=== PATIENT | male | born 1975 | race Caucasian/White ===

== ENCOUNTER 2022-11-29 08:13 | Outpatient (CLI) | payer OTHER, SELFPAY ==
[2022-12-03 16:21] LABS: Testosterone Free 97.7 pg/mL (35.0-155.0); Testosterone Total 769 ng/dL (250-1100)
== END 2022-11-29 08:14 | disposition home or self-care (01) ==
LOC: ANHBWCLAB 08:14
PROVIDERS: PCP Family Medicine; Visit Provider Family Medicine
DX: N52.9 Male erectile dysfunction, unspecified (principal); R68.82 Decreased libido
CPT/HCPCS: 36415; 84402; 84403

== ENCOUNTER 2023-05-28 07:52 | Outpatient (CLI) | payer OTHER, SELFPAY ==
[2023-05-28 20:19] LABS: Alanine Aminotransferase 24 U/L (6-50); Albumin Level 4.4 g/dL (3.5-5.1); Alkaline Phosphatase 108 U/L (38-126); Anion Gap 6 mmol/L (8-16); Aspartate Amino Transferase 42 U/L (17-59); Bilirubin,Total 0.6 mg/dL (0.2-1.3); Blood Urea Nitrogen 17 mg/dL (9-20); Calcium 9.3 mg/dL (8.4-10.2); Carbon Dioxide 25 mmol/L (22-30); Chloride 108 mmol/L (98-107); Cholesterol 258 mg/dL (0-200); Estimated Glomerular Filt Rate > 60; Glucose 97 mg/dL (65-110); HDL Direct 38 mg/dL; Potassium 4.4 mmol/L (3.4-5.0); Sodium 139 mmol/L (137-145); Triglycerides 187 mg/dL (<150)
[2023-05-28 20:48] LABS: LDL Cholesterol Direct 158 mg/dL
== END 2023-05-28 07:53 | disposition home or self-care (01) ==
PROVIDERS: PCP Nurse Practitioner Adult Health; Visit Provider Nurse Practitioner Adult Health
DX: I10 Essential (primary) hypertension (principal)
CPT/HCPCS: 36415; 80053; 80061

== ENCOUNTER 2023-11-12 08:02 | Outpatient (CLI) | payer OTHER, SELFPAY ==
--- NOTE | ~2023-11-12 | XR_ITS ---
EXAMINATION:XR_CERV2-3V_CR DATE: 11/12/2023 08:21 INDICATION: Neck pain TECHNIQUE: AP, lateral, lateral swimmers and odontoid views of the cervical spine are provided. COMPARISON: None FINDINGS: There is straightening of the cervical spine which can be positional or due to muscular spa sm. Alignment is normal. The odontoid process is intact. No fracture is identified. The vertebral bod y heights are maintained. There is mild loss of intervertebral disc space height at C5-C6. Small dege nerative osteophytes project from the anterior endplates of multiple vertebral bodies. There is mild facet and uncovertebral joint osteoarthritis at C5-6 and C6-7. Prevertebral soft tissues are normal. IMPRESSION: 1. Mild cervical spondylosis without acute findings. Reviewed, dictated and finalized at location B. GER HELPDESK
--- NOTE | ~2023-11-12 | XR_ITS ---
EXAMINATION: XR thoracic spine 2V DATE: 11/12/2023 08:21 INDICATION: Thoracic back pain TECHNIQUE: AP and lateral views of the thoracic spine are obtained. COMPARISON: None. FINDINGS: No fracture, dislocation, or subluxation. The vertebral body heights and alignment are norm al. There is mild loss of intervertebral disc space height in the lower thoracic spine. The paraverte bral soft tissues are unremarkable. IMPRESSION: 1. Mild thoracic spondylosis without acute findings. Reviewed, dictated and finalized at location B. SCALE MAN
[2023-11-12 19:44] LABS: Basophils Absolute Auto 0.1 K/mm3 (0.0-0.1); Basophils Percent Auto 0.6 % (0.2-1.2); Eosinophils Absolute Auto 0.2 K/mm3 (0-0.3); Eosinophils Percent Auto 1.7 % (0-4.4); Hematocrit 49.6 % (42.0-52.0); Hemoglobin 16.5 g/dL (14.0-18.0); Immature Granulocyte Absolute 0.04 K/mm3 (0.00-0.031); Immature Granulocyte Percent A 0.4 % (0-0.5); Lymphocytes Percent Auto 26.1 % (18.3-44.2); Mean Corpuscular HGB Conc 33.3 g/dl (32-36); Mean Corpuscular Hemoglobin 33.1 pg (26-34); Mean Corpuscular Volume 99.4 fl (80-100); Mean Platelet Volume 11.8 fl (7.4-10.4); Monocytes Absolute Auto 0.8 K/mm3 (0.1-0.6); Monocytes Percent Auto 6.9 % (2.6-8.5); Neutrophils Absolute Auto 7.1 K/mm3 (1.3-6.7); Neutrophils Percent Auto 64.3 % (45.5-73.1); Platelet Count Result 227 k/mm3 (150-375); Red Blood Count 4.99 M/mm3 (4.6-6.20); Red Cell Distribution Width 12.1 % (11.5-14.5); White Blood Count 11.1 K/mm3 (4.5-10.0)
[2023-11-12 20:43] LABS: Alanine Aminotransferase 25 U/L (6-50); Albumin Level 4.4 g/dL (3.5-5.1); Alkaline Phosphatase 116 U/L (38-126); Anion Gap 7 mmol/L (8-16); Aspartate Amino Transferase 29 U/L (17-59); Blood Urea Nitrogen 14 mg/dL (9-20); Calcium 9.5 mg/dL (8.4-10.2); Carbon Dioxide 25 mmol/L (22-30); Chloride 107 mmol/L (98-107); Cholesterol 259 mg/dL (0-200); Estimated Glomerular Filt Rate > 60; Glucose 98 mg/dL (65-110); HDL Direct 46 mg/dL; Potassium 4.4 mmol/L (3.4-5.0); Sodium 139 mmol/L (137-145); Triglycerides 134 mg/dL (<150)
[2023-11-12 20:55] LABS: LDL Cholesterol Direct 160 mg/dL
[2023-11-21 11:41] LABS: Testosterone Free 73.8 pg/mL (35.0-155.0); Testosterone Total 509 ng/dL (250-1100)
== END 2023-11-12 08:03 | disposition home or self-care (01) ==
LOC: ANHBWCIMG 08:03
PROVIDERS: PCP Nurse Practitioner Adult Health; Visit Provider Nurse Practitioner Adult Health
DX: M43.05 Spondylolysis, thoracolumbar region (principal); M43.02 Spondylolysis, cervical region; E78.5 Hyperlipidemia, unspecified; R68.82 Decreased libido
CPT/HCPCS: 36415; 72040; 72070; 80053; 80061; 84402; 84403; 84443; 85025

== ENCOUNTER 2024-04-17 08:02 | Outpatient (CLI) | payer OTHER, SELFPAY ==
--- NOTE | ~2024-04-17 | MR_ITS ---
MRI of the lumbar spine Clinical History: Spinal enthesopathy Technique: Axial T2-weighted images, and sagittal T1-weighted, T2-weighted, and T2 fat-sat images wer e acquired. Findings: There is no fracture or subluxation of the lumbar spine. Vertebral bodies maintain normal h eight and alignment. No bone marrow signal abnormality seen. At L1-L2 and L2-L3, there is no disc bulge or herniation. There is moderate facet arthropathy at thes e levels. No spinal canal stenosis or neural foraminal narrowing. At L3-L4, there is disc bulge, especially the left foraminal region, with moderate facet arthropathy. No central canal stenosis. There is moderate to advanced left neural foraminal narrowing. There is m ild to moderate right neural foraminal narrowing. At L4-L5, there is a small central disc extrusion superimposed on disc bulge with mild to moderate fa cet arthropathy. No sohan central canal stenosis. There is mild to moderate bilateral neural foramina l narrowing. At L5-S1, there is moderate degenerative disc narrowing. There is disc protrusion at the central to l eft paracentral region, with moderate to advanced facet arthropathy. No sohan central canal stenosis. There is moderate left neural foraminal narrowing. Right neural foramen preserved. Possible focal im pingement of the descending left S1-S2 level nerve root by the disc protrusion. Paravertebral soft tissues are unremarkable. Impression: Moderate degenerative spondylosis of the lower lumbar spine, as detailed above. Reviewed, dictated and finalized at location . Impression: Moderate degenerative spondylosis of the lower lumbar spine, as detailed above.
--- NOTE | ~2024-04-17 | MR_ITS ---
MRI of the thoracic spine Clinical History: Spinal stenosis Technique: Axial T2-weighted and gradient images, and sagittal T1-weighted, T2-weighted, and STIR himanshu ges were acquired. Findings: There is no fracture or subluxation of the thoracic spine. Vertebral bodies maintain normal height and alignment. No suspicious bone marrow signal abnormality seen. No significant disc bulge or herniation evident. Mild degenerative disc narrowing present over the lo wer half of the thoracic spine. No spinal canal stenosis or cord compression evident. No epidural mas s or collection seen. No abnormal signal seen in the spinal cord. Paravertebral soft tissues are unremarkable. Impression: Mild degenerative disc narrowing at the lower half of the thoracic spine. Reviewed, dictated and finalized at location . Impression: Mild degenerative disc narrowing at the lower half of the thoracic spine.
== END 2024-04-17 08:03 ==
LOC: MICIMG 08:03
PROVIDERS: PCP Nurse Practitioner Adult Health
DX: M48.04 Spinal stenosis, thoracic region (principal); M51.16 Intervertebral disc disorders with radiculopathy, lumbar region; M46.06 Spinal enthesopathy, lumbar region; M51.34 Other intervertebral disc degeneration, thoracic region; M47.896 Other spondylosis, lumbar region
CPT/HCPCS: 72146; 72148

== ENCOUNTER 2024-10-30 07:38 | Outpatient (CLI) | payer OTHER, SELFPAY ==
[2024-10-30 19:49] LABS: Hematocrit 48.6 % (42.0-52.0); Mean Corpuscular HGB Conc 32.9 g/dl (32-36); Mean Corpuscular Volume 100.2 fl (80-100); Mean Platelet Volume 11.2 fl (7.4-10.4); Platelet Count Result 241 k/mm3 (150-375); Red Blood Count 4.85 M/mm3 (4.6-6.20); Red Cell Distribution Width 12.5 % (11.5-14.5); White Blood Count 10.2 K/mm3 (4.5-10.0)
[2024-10-30 21:06] LABS: Alanine Aminotransferase 23 U/L (6-50); Albumin Level 4.3 g/dL (3.5-5.1); Alkaline Phosphatase 113 U/L (38-126); Anion Gap 3 mmol/L (4-12); Aspartate Amino Transferase 33 U/L (17-59); Bilirubin,Total 0.7 mg/dL (0.2-1.3); Blood Urea Nitrogen 16 mg/dL (9-20); Calcium 9.3 mg/dL (8.4-10.2); Carbon Dioxide 28 mmol/L (22-30); Chloride 107 mmol/L (98-107); Cholesterol 228 mg/dL (0-200); Estimated Glomerular Filt Rate > 60; Glucose 100 mg/dL (65-110); HDL Direct 49 mg/dL; Potassium 4.7 mmol/L (3.4-5.0); Sodium 138 mmol/L (137-145); Triglycerides 138 mg/dL (<150)
[2024-10-30 21:17] LABS: LDL Cholesterol Direct 140 mg/dL
[2024-10-30 21:38] LABS: Prostate Specific Antigen 1.1 ng/mL (< OR = 4.0)
== END 2024-10-30 07:39 | disposition home or self-care (01) ==
LOC: ANHBWCLAB 07:39
PROVIDERS: PCP Nurse Practitioner Adult Health; Visit Provider Nurse Practitioner Adult Health
DX: E78.5 Hyperlipidemia, unspecified (principal); Z12.5 Encounter for screening for malignant neoplasm of prostate
CPT/HCPCS: 36415; 80053; 80061; 84153; 84443; 85027; G0103

== ENCOUNTER 2025-01-13 07:39 | Day surgery (SDC) | payer OTHER, SELFPAY ==
--- NOTE | ~2025-01-13 | XR_ITS ---
XR fluoroscopy no charge Indication: Bilateral L3, L4 and L5 medial branch nerve block TECHNIQUE: Fluoroscopy used during Bilateral L3, L4 and L5 medial branch nerve block performed by Dr Leon [Shawn Watkins MD] on 01/13/2025. When he 2 seconds of fluoroscopy with an 18 fluoroscopic images captured. FINDINGS: Correlate with procedure note. IMPRESSION: Fluoroscopy used during Bilateral L3, L4 and L5 medial branch nerve block. Reviewed, dictated and finalized at location B. M BOX TENDER
--- NOTE | 2025-01-13 08:41 | P.HP_ITS ---
History of Present Illness History of Present Illness Consent: Risks, benefits, and alternatives have been discussed and questions answered. Patient agrees to proceed with procedure. Chief complaint: Spondylosis w/o Myelopathy or Radiculopathy, chron Narrative: Ricki Begum is a 49 year old male with chronic, recalcitrant and disabling bilateral lumbosacral back pain secondary to degenerative spondylosis with failure to respond to aggressive conservative measures including PT, oral and topical analgesics, opioid and nonopioid analgesics, rest, time and activity/behavioral modification over the past 1-2 years who presents for diagnostic/prognostic medial branch blocks of the bilateral L3, L4, L5 medial branches/dorsal ramus(#1) addressing the ipsilateral L4-5, L5-S1 facet joints under fluoroscopic guidance and with contrast control. Review of Systems Review of Systems: Patient denies any new infectious, allergic, cardiopulmonary, neurologic or constitutional symptoms or changes in activity tolerance or exercise capacity including new or progressive SOB/BENTON, peripheral edema, productive cough, dysuria, nausea/vomiting, diarrhea, weight change, fevers/chills/night sweats, new or progressive neurologic deficit, cognitive or mood changes since last seen, except as documented in the HPI. All systems reviewed & are unremarkable except as noted in HPI and below PMFSH Family History Family History Father Diabetes mellitus Hypertension Heart disease Mother Diabetes mellitus Hypertension Cerebrovascular accident Sibling Diabetes mellitus Social History Social History Smoking packs per day: 1 Smoking cigarettes per day: 20.0 Smoking status: Current every day smoker Tobacco type: cigarettes Alcohol intake: never Substance use: never Substance use type: does not use Lack of Transportation: No Lack of Food: Never True Current Housing: I Have Housing Concerned About Future Housing: No Difficulty Paying Gas/Electric Bills: No Difficulty Paying for Meds: No Currently Unemployed: No Education: Decline to Answer Difficulty w/ Childcare or Family Care: No Living arrangements: with family Meds Home Medications and Allergies Home Medications ?Medication ?Instructions ?Recorded ?Confirmed ?Type tadalafil 10 mg tablet (Cialis) 10 mg PO DAILY PRN sexual activity 11/08/22 12/25/24 Rx #20 tabs Allergies Allergy/AdvReac Type Severity Reaction Status Date / Time No Known Allergies Allergy Verified 12/25/24 08:17 Exam Narrative: The patient's physical exam is essentially unchanged from prior examination on 11/24/2024. Specifically, patient demonstrates normal lung capacity, tidal volume and respiratory rate without wheezes, crackles, rales or rubs. Heart rate and rhythm are regular without murmurs, gallops or rubs. No JVD. Pulses 2+ globally without increasing peripheral edema. AAOx3 with no evidence of confusion, intoxication or altered mental state, NC/AT without acute distress or altered consciousness. Speech, cognition, mood, insight and judgment at basel ine and within normal limits. Assessment and Plan Assessment and plan (1) Lumbosacral spondylosis: Code(s): M47.817 - Spondylosis without myelopathy or radiculopathy, lumbosacral region Status: Acute Assessment and Plan: Proceed as planned with diagnostic/prognostic medial branch blocks of the bilateral L3, L4, L5 medial branches/dorsal ramus(#1) addressing the ipsilateral L4-5, L5-S1 facet joints under fluoroscopic guidance and with contrast control. (2) Back pain: Code(s): M54.9 - Dorsalgia, unspecified Status: Acute (3) Chronic pain: Code(s): G89.29 - Other chronic pain Status: Acute
--- OUTSIDE RECORDS SUMMARY | 2025-01-13 08:41 | XMS_ITS | Clinical Summary ---
Author Organization [facility] A Address [address] [place] [address] Care Team Providers Care Wetlands Technician Name Role Phone Unavailable Primary Care Provider Unavailabl e Allergies No known active allergies Medications cholecalciferol (VITAMIN D3) 2,000 unit capsule 2,000 Units. 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 Elevated BP without diagnosis of hypertension Assessment & Plan (03/10/2021 4:44 PM CDT): High bp and watch and do up and start meds Assessment & Plan (11/08/2020 2:41 PM HEATING EQUIPMENT INSTALLER): bp a liaattle higher here and little better at home bringin cherie to cross check Assessment & Plan (07/12/2020 9:05 AM CDT): bp here mildly up aty 113 032 /80-82 with ekg Rate 66 nsr axis 17 without bp efecgts for now wiol not start meds and ask to scooter quarterly or so for cuide monitoring IGT (impaired glucose tolerance) 07/09/2019 Assessment & Plan (03/10/2021 4:43 PM CDT): a1c at 5 2 and go Assessment & Plan (11/08/2020 2:41 PM HEATING EQUIPMENT INSTALLER): Check on return Assessment & Plan (07/12/2020 9:03 AM CDT): a1c at 5.3 and nl No changeds and check yr'ly Assessment & Plan (07/09/2019 3:20 PM CDT): a1c a 5.3 and 5.6 nl. PE (physical exam), annual 06/27/2018 Assessment & Plan (07/12/2020 9:04 AM CDT): healthly male with Allergy issue trial claritin versus and zaditor for eye. Higher overall risk from Tobacco . Colon at age 48 without higher risk . Consider yr'lyl flu shot. And Bring in breath test for use. ekg nl see bp Assessment & Plan (01/08/2019 5:11 PM HEATING EQUIPMENT INSTALLER): Check psa BMI 27.0-27.9,adult 06/27/2018 Assessment & Plan (11/08/2020 2:41 PM HEATING EQUIPMENT INSTALLER): Gained a few lbs. Assessment & Plan (07/09/2019 3:20 PM CDT): Work to keep wt here or lower Assessment & Plan (01/08/2019 5:09 PM HEATING EQUIPMENT INSTALLER): Watch wst Assessment & Plan (06/27/2018 2:01 PM CDT): Being over weight is dealt with by restriction of you daily calories and increasing your calorie needs with increases in your work load/exercises or just increases in daily activity. There are different programs for weight loss and they all are felt to be relatively equally effective and you can make a choice as to what works for you. Microscopic hematuria 06/27/2018 Assessment & Plan (07/12/2020 9:12 AM CDT): Urine clear this time so past likely stone and now not issue push fluids Assessment & Plan (07/09/2019 3:31 PM CDT): Cleared and from stones and passed Assessment & Plan (01/08/2019 5:07 PM HEATING EQUIPMENT INSTALLER): Check urine on reutnr Assessment & Plan (06/27/2018 2:05 PM CDT): Present and hx stones. Can't prove not something elese then stones. Think on seeing uro to eval for stones or someother source. other worry would be cancer Vitamin deficiency 06/27/2018 Assessment & Plan (07/09/2019 3:35 PM CDT): D cont meds and check on reutrn Assessment & Plan (01/08/2019 5:10 PM HEATING EQUIPMENT INSTALLER): Take 2000 a day or 7 pills of 2000 a week Assessment & Plan (06/27/2018 2:10 PM CDT): Not on d as forgets. Take 2000 a day of average and if forgets by weekend get 7 Of the 2000 in a week or take 3 of the 5000 a week Tobacco dependence syndrome 04/11/2014 Overview (02/28/2017): TOBACCO USE DISORDER Assessment & Plan (09/30/2021 12:32 PM CDT): He was advised to quit smoking; the risks of continued tobacco use discussed. 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 Gtreat. No obstructive defect Multiple-type hyperlipidemia 04/11/2014 Overview (02/28/2017): MIXED HYPERLIPIDEMIA Assessment & Plan (03/10/2021 4:43 PM CDT): ldl 102 and and work to stay here andon 5mg and stay there for nowYour cholesterol in the form of ldl (bad) cholesterol,hdl(good) cholesterol and triglycerides are monitored. The triglycerides respond to reduction/controll of your simple carbs/sugars In such items as sugared soda/sweet tea along with fruit juices(containing natural sugar) even if no added sugar is added. LDL cholesterol is reduced with reducing daily intake of fats and emely. saturated fats. The monosaturated fats like olive oil are not harmful except in the calories they contained. Whole milk cheese needs to be remembered along with whole milk products And limited. Assessment & Plan (11/08/2020 2:40 PM HEATING EQUIPMENT INSTALLER): ldl dropped o 5mg atarvasitn and stephen stay athereYour cholesterol in the form of ldl (bad) cholesterol,hdl(good) cholesterol and triglycerides are monitored. The triglycerides respond to reduction/controll of your simple carbs/sugars In such items as sugared soda/sweet tea along with fruit juices(containing natural sugar) even if no added sugar is added. LDL cholesterol is reduced with reducing daily intake of fats and emely. saturated fats. The monosaturated fats like olive oil are not harmful except in the calories they contained. Whole milk cheese needs to be remembered along with whole milk products And limited. Assessment & Plan (07/12/2020 9:02 AM CDT): ldl at 153 and with ascvd risk 8.1 propose starting low dose statin. And start atorvastin 10 and take 1/2 a day and look to get less then 100. Your cholesterol in the form of ldl (bad) cholesterol,hdl(good) cholesterol and triglycerides are monitored. The triglycerides respond to reduction/controll of your simple carbs/sugars In such items as sugared soda/sweet tea along with fruit juices(containing natural sugar) even if no added sugar is added. LDL cholesterol is reduced with reducing daily intake of fats and emely. saturated fats. The monosaturated fats like olive oil are not harmful except in the calories they contained. Whole milk cheese needs to be remembered along with whole milk products And limited. Assessment & Plan (07/09/2019 3:34 PM CDT): ldl at 136 and less then 130. hdl 44 and good Assessment & Plan (01/08/2019 5:07 PM HEATING EQUIPMENT INSTALLER): Lipids check oonrfeturn and look for where done and getr resusltsYour cholesterol in the form of ldl (bad) cholesterol,hdl(good) cholesterol and triglycerides are monitored. The triglycerides respond to reduction/controll of your simple carbs/sugars In such items as sugared soda/sweet tea along with fruit juices(containing natural sugar) even if no added sugar is added. LDL cholesterol is reduced with reducing daily intake of fats and emely. saturated fats. The monosaturated fats like olive oil are not harmful except in the calories they contained. Whole milk cheese needs to be remembered along with whole milk products And limited. Assessment & Plan (06/27/2018 2:02 PM CDT): ldl at high risk 179 and less then 1`30 good and prefer less then 100., diet worked before and will try forYour cholesterol in the form of ldl (bad) cholesterol,hdl(good) cholesterol and triglycerides are monitored. The triglycerides respond to reduction/controll of your simple carbs/sugars In such items as sugared soda/sweet tea along with fruit juices(containing natural sugar) even if no added sugar is added. LDL cholesterol is reduced with reducing daily intake of fats and emely. saturated fats. The monosaturated fats like olive oil are not harmful except in the calories they contained. Whole milk cheese needs to be remembered along with whole milk products And limited. Sciatica 04/11/2014 Overview (03/02/2017): SCIATICA Assessment & Plan (07/09/2019 3:34 PM CDT): Occasionally an issue stretches and Then chiro Assessment & Plan (06/27/2018 2:02 PM CDT): Intermittent and recurrent siatica. , core consider to limit stiffness Resolved Problems Problem Noted Date Diagnosed Date Resolved Date Low back pain 04/11/2014 06/27/2018 Overview (03/03/2017): LUMBAGO Abnormal glucose tolerance test (GTT) 04/11/2014 07/09/2019 Overview (03/03/2017): IMPAIRED ORAL GLUCSE GHADA Assessment & Plan (01/08/2019 5:09 PM HEATING EQUIPMENT INSTALLER): Check a1c on return Assessment & Plan (06/27/2018 2:00 PM CDT): a1c at 5.3 and well les then 5.6 check on return Immunizations Immunization Administration Dates Next Due Influenza, Unspecified 09/30/2021(Deferr ed: Patient Refused),08/26/2020(Deferred: Patient Refused),08/09/2019(Deferred: Patient Refused),07/09/2019(Deferred: Patient Refused),01/08/2019(Deferred: Patient Refused) Tdap 06/27/2018 Surgical History Surgery Date Site/Laterality Comments BACK SURGERY 1998 Back surgery Medical History Medical History Date Comments Hx Other Medical 01-Orthopedist Family History Medical History Relation Name Comments Diabetes Father Diabetes mellit us; Heart disease Father Heart disease; ESKD Requiring Dialysis Mother Diabetes Sister Diabetes mellit us; Relation Name Status Comments Father Mother Sister Social History Tobacco Use Types Packs/Day Years Used Date Smoking Tobacco: Every Day Smokeless Tobacco: Never Tobacco Cessation:Ready to Q uit: Yes; Counseling Given: Yes Comments:Smoking History Packs/day: 1.5 Packs Alcohol Use Standard Drinks/Week Comments Yes 0 (1 standard drink = 0.6 oz pur e alcohol) PHQ-2 Answer Date Recorded PHQ-2 Total Score (If total score is 3 or more points, staff should administer the PHQ-9) 0 09/30/2021 Sex and Gender Information Value Date Recorded Sex Assigned at Not on file Legal Sex Male 4:01 PM HEATING EQUIPMENT INSTALLER Gender Identity Not on file Sexual Orientation Not on file Obstetrics History Last Filed Vital Signs Vital Sign Reading Time Taken Comments Blood Pressure 126/78 09/30/2021 12:50 PM CDT Pulse 95 09/30/2021 12:50 PM CDT Temperature - - Respiratory Rate 18 03/10/2021 4:08 PM CDT Oxygen Saturation 98% 09/30/2021 12:50 PM CDT Inhaled Oxygen Concentration - - Weight 84.4 kg (186 lb) 09/30/2021 12:50 PM CDT Height 170.2 cm (5' 7 ) 09/30/2021 12:50 PM CDT Body Mass Index 29.13 09/30/2021 12:50 PM CDT Plan of Treatment Not on file Insurance [employer] OPEN ACCESS
--- OUTSIDE RECORDS SUMMARY | 2025-01-13 08:41 | XMS_ITS | Referral Summary ---
Author Organization [facility] A Address [address] [place] [address] Care Team Providers Care Employment Specialist/Program Manager Name Role Phone Unavailable Primary Care Provider [...] 11/08/2020 Assessment & Plan (11/08/2020 2:40 PM ELECTRONIC BENCH TECHNICIAN): Elbows and knees off meds for dec [...] meds Assessment & Plan (11/08/2020 2:41 PM ELECTRONIC BENCH TECHNICIAN): bp a liaattle higher here and little [...] go Assessment & Plan (11/08/2020 2:41 PM ELECTRONIC BENCH TECHNICIAN): Check on return Assessment & Plan (07/12/2020 [...] bp Assessment & Plan (01/08/2019 5:11 PM ELECTRONIC BENCH TECHNICIAN): Check psa BMI 27.0-27.9,adult 06/27/2018 Assessment & Plan (11/08/2020 2:41 PM ELECTRONIC BENCH TECHNICIAN): Gained a few lbs. Assessment & Plan (07/09/2019 3:20 PM CDT): Work to keep wt here or lower Assessment & Plan (01/08/2019 5:09 PM ELECTRONIC BENCH TECHNICIAN): Watch wst Assessment & Plan (06/27/2018 2:01 [...] passed Assessment & Plan (01/08/2019 5:07 PM ELECTRONIC BENCH TECHNICIAN): Check urine on reutnr Assessment & Plan (06/27/2018 2:05 PM CDT): Present and hx stones. Can't prove not something elese then stones. Think on seeing uro to eval for stones or someother source. other worry would be cancer Vitamin deficiency 06/27/2018 Assessment & Plan (07/09/2019 3:35 PM CDT): D cont meds and check on reutrn Assessment & Plan (01/08/2019 5:10 PM ELECTRONIC BENCH TECHNICIAN): Take 2000 a day or 7 pills [...] Assessment & Plan (07/09/2019 3:35 PM CDT): continuous churn buttermaker talk about quit Assessment & Plan (06/27/2018 2:39 PM CDT): Recognize need to quit.fvc 111 and [id number]% of nl. Gtreat. No obstructive defect Multiple-type [...] limited. Assessment & Plan (11/08/2020 2:40 PM ELECTRONIC BENCH TECHNICIAN): ldl dropped o 5mg atarvasitn and stephen [...] good Assessment & Plan (01/08/2019 5:07 PM ELECTRONIC BENCH TECHNICIAN): Lipids check oonrfeturn and look for where [...] GHADA Assessment & Plan (01/08/2019 5:09 PM ELECTRONIC BENCH TECHNICIAN): Check a1c on return Assessment & Plan (06/27/2018 2:00 PM CDT): a1c at 5.3 and well les then 5.6 check on return Immunizations Immunization Administration Dates Next Due Influenza, Unspecified 09/30/2021(Deferr ed: Patient Refused),08/26/2020(Deferred: Patient Refused),08/09/2019(Deferred: Patient Refused),07/09/2019(Deferred: Patient Refused),01/08/2019(Deferred: Patient Refused) Tdap 06/27/2018 Social History Tobacco Use Types Packs/Day Years [...] on file Legal Sex Male 4:01 PM ELECTRONIC BENCH TECHNICIAN Gender Identity Not on file Sexual Orientation Not on file Last Filed Vital Signs Vital Sign Reading [...] Plan of Treatment Not on file Insurance [employer] OPEN ACCESS
--- OUTSIDE RECORDS SUMMARY | 2025-01-13 08:41 | XMS_ITS | Continuity of Care Document ---
Author Organization [facility] Address [address] [place] [address] Phone Care Team Providers Care Damaged Freight Inspector Name Role Phone Dalton Nichols MD Unavailable Unavailable Procedures Procedure Date Eye Exam, New Patient Advance Directives Directive Yes / No Effective Date File Name No Information Encounters Encounter Description Practice Location Reason(s) For Visit Diagnoses Date Provider Providers Copied on Encounter [facility], [address], [place], [place], [id number], [place] tel:[phone] [place] Professional No Information 0 Simone Hoffman. [address] [facility] [address], [place], [place], [id number], [place]. tel:[phone] Family History Family Member Type Diagnosis Age At Onset No Information Payers Payer name Insurance type Covered constitution party ID Authoriza tion(s) No Information Social History Type Description Quantity Date Captured Comments Sex Male Smoking Status No Information Chief Complaint And Reason For Visit No Information Reason For Referral Reason For Referral No Information History Of Present Illness Encounter Date Complaint History Of Prese nt Illness No Information Functional Status Date Functional Assessmen t No Information Instructions Date Instruction Additional Infor mation No Information Assessments Type Assessment Date No Information Patient Care Teams Name Effective Dates (start - stop) Status Members No Information
--- NOTE | 2025-01-13 08:43 | WPDHPUPDATE1 ---
History and Physical Update Update Date/Time: 01/13/25 08:43 History and Physical has been reviewed, including an updated exam of the patient. There are NO changes in the patient's condition. Risks, benefits, and alternatives have been discussed and questions answered. Patient agrees to proceed with procedure.
--- NOTE | 2025-01-13 08:43 | W.PM.PROC2 ---
Procedure Note - Detailed Date of Procedure 01/13/25 Pre-op Diagnosis Spondylosis w/o Myelopathy or Radiculopathy, chronic low back pain Post-op Diagnosis Same Procedure Performed Diagnostic bilateral Lumbar Medial Branch/Dorsal Ramus Blocks at L3, L4, L5 Treating the bilateral L4-5, L5-S1 Facet Joints Under Fluoroscopic Guidance and with Contrast Control. (4 levels blocked). Surgeon Shawn Watkins MD Specialized Language Instructor None. Anesthesia Local Description of Procedure INFORMED CONSENT: Risks, benefits and alternatives to the procedure were discussed in detail with the patient who expressed explicit understanding and consent to proceed. Patient was informed verbally and in written form regarding the risks associated with the procedure including the low risk of serious infection, bleeding/bruising, allergic reaction, nerve or organ injury, paralysis, procedural site pain or discomfort, worsening pain and/or mobility, failure to treat and/or disfigurement. The patient expressed explicit understanding and consent to proceed. All materials required for the procedure were available prior to procedure start. Site and side were marked prior to procedure and confirmed in the presence of the patient. PROCEDURE IN DETAIL: The patient was brought to the procedural suite and placed in the prone position. Patient was made comfortable with use of pillows under the head/chest, hips and ankles. Skin overlying the injection site on the affected side(s) was prepared broadly with ChloraPrep applicator and draped in a sterile manner. Aseptic technique was used throughout. The endplates of the vertebral bodies at the site(s) of interest were aligned in the AP view. Ipsilateral oblique angulation was utilized to optimize visualization of the intersection between the superior articulating process and transverse process at each target site. Local anesthesia was established by infiltration with approximately 5 mL of 1% lidocaine via a 1-1/2 inch 27-gauge needle. A 25-gauge 5.0 inch Quincke spinal needle was advanced until the needle tip contacted periosteum at the target site, right L3. Lateral view was utilized to confirm the appropriate placement of the needle tip just anterior to the facet line and superior to the pedicle. In the Lateral view, 0.25 mL of Omnipaque 300 contrast medium was injected after negative aspiration for CSF, blood or other bodily fluid, showing appropriate extra-articular spread of contrast without evidence of intravascular, foraminal or intrathecal placement. A 0.5 mL solution of 0.5% PF bupivacaine was injected after negative repeat aspiration. Appropriate spread of the injectate was confirmed with washout of previously injected contrast. No parasthesias were elicited. Needle was removed completely intact without difficulty. The same exact procedure was repeated for all remaining levels on the ipsilateral side, right L4, L5 medial branches/dorsal ramus, modified as necessary to accommodate for the new target location with identical findings and results and no evidence of complication. The same exact procedure was repeated for all remaining levels on the contralateral side, left L3, L4, L5 medial branches/dorsal ramus, modified as necessary to accommodate for the new target location with identical findings and results and no evidence of complication. Images were saved and documented in the patient chart. Patient's skin was cleaned and sterile bandage applied. The patient tolerated the procedure well. The patient was transported to the recovery area in stable condition where they were observed for an appropriate amount of time prior to discharge, without evidence of complication. Patient was instructed on the appropriate completion of a pain diary over the next 12-24 hours. The patient was instructed to avoid excessive activity for the next 48 hours, including climbing and frequent use of stairs. Showers only for 48 hours. They were instructed not to drive or operate heavy machinery for 24 hours. They are to monitor for severe headaches, fevers, chills, night sweats, erythema/swelling at the site or any other signs of infection, bleeding/bruising, bowel or bladder changes as well as new pain, weakness or numbness in the upper or lower extremity. Should they notice these changes, they are instructed to call our office immediately or report directly to the nearest Emergency Department if no answer or if after posted office hours. COMPLICATIONS: None COMMENTS: None CONTRAST WASTED: 28.5mL Omnipaque 300. Complications No immediate complications Condition Stable Disposition Same day [facility] Billing Surgery - Charge Forward: Surgery Billing
[2025-01-13 08:54] VITALS: BP 146/82; PULSE 80; RESP 16; TEMP 36.7; O2SAT 98
[2025-01-13 09:14] VITALS: BP 177/89; PULSE 95; RESP 12; O2SAT 98
[2025-01-13 09:25] VITALS: BP 180/83; PULSE 88; RESP 13; O2SAT 96
[2025-01-13] MEDS: BUPivacaine HCL 0.5% 10 ML AMP 5 ML INFILTRATE (09:25)
[2025-01-13] MEDS: LIDOCAINE 1% PF INJ 5 ML VIAL INFILTRATE (09:26)
[2025-01-13 09:30] VITALS: BP 143/84; PULSE 69; RESP 16; O2SAT 100
== END 2025-01-13 09:45 | disposition home or self-care (01) ==
PROVIDERS: PCP Nurse Practitioner Adult Health; Visit Provider Anesthesiology Pain Medicine
PROC: (CPT 64635; principal; 2025-01-13 09:30)
DX: M47.817 Spondylosis without myelopathy or radiculopathy, lumbosacral region (principal); G89.29 Other chronic pain
CPT/HCPCS: 64635; 64636 ×6; 99199

== ENCOUNTER 2025-04-21 06:27 | Day surgery (SDC) | payer OTHER, SELFPAY ==
--- NOTE | ~2025-04-21 | XR_ITS ---
XR fluoroscopy no charge Indication: Bilateral intra-articular sacroiliac joint injection TECHNIQUE: Fluoroscopy used during Bilateral intra-articular sacroiliac joint injection performed by [Shawn Watkins MD] on 04/21/2025. 55 seconds of fluoroscopy time with 10 fluoroscopic images c aptured. FINDINGS: Correlate with procedure note. IMPRESSION: Fluoroscopy used during Bilateral intra-articular sacroiliac joint injection. Reviewed, dictated and finalized at location A.
--- OUTSIDE RECORDS SUMMARY | 2025-04-21 07:26 | XMS_ITS | Continuity of Care Document ---
Author Organization [facility] Address [address] [place] [address] Phone Care Team Providers Care Industrial Workers Name Role Phone Dalton Nichols MD Unavailable Unavailable Procedures Procedure Date Eye Exam, New Patient Advance Directives Directive Yes / No Effective Date File Name No Information Encounters Encounter Description Practice Location Reason(s) For Visit Diagnoses Date Provider Providers Copied on Encounter [facility], [address], [place], [place], [id number], [place] tel:[phone] SEC Juan [place] Professional No Information 0 Simone Hoffman. [address] [facility] [address], [place], [place], [address], [place]. tel:[phone] Family History Family Member Type Diagnosis Age At Onset No Information Payers Payer name Insurance type Covered green party ID Authoriza tion(s) No Information Social [...]
--- OUTSIDE RECORDS SUMMARY | 2025-04-21 07:26 | XMS_ITS | Clinical Summary ---
Author Organization [facility] Address [address] [place] [address] Care Team Providers Care Flower Planter Name Role Phone Unavailable Primary Care Provider [...] 11/08/2020 Assessment & Plan (11/08/2020 2:40 PM BARREL ASSEMBLY INSPECTOR): Elbows and knees off meds for dec [...] meds Assessment & Plan (11/08/2020 2:41 PM BARREL ASSEMBLY INSPECTOR): bp a liaattle higher here and little [...] go Assessment & Plan (11/08/2020 2:41 PM BARREL ASSEMBLY INSPECTOR): Check on return Assessment & Plan (07/12/2020 [...] bp Assessment & Plan (01/08/2019 5:11 PM BARREL ASSEMBLY INSPECTOR): Check psa BMI 27.0-27.9,adult 06/27/2018 Assessment & Plan (11/08/2020 2:41 PM BARREL ASSEMBLY INSPECTOR): Gained a few lbs. Assessment & Plan (07/09/2019 3:20 PM CDT): Work to keep wt here or lower Assessment & Plan (01/08/2019 5:09 PM BARREL ASSEMBLY INSPECTOR): Watch wst Assessment & Plan (06/27/2018 2:01 [...] passed Assessment & Plan (01/08/2019 5:07 PM BARREL ASSEMBLY INSPECTOR): Check urine on reutnr Assessment & Plan (06/27/2018 2:05 PM CDT): Present and hx stones. Can't prove not something elese then stones. Think on seeing uro to eval for stones or someother source. other worry would be cancer Vitamin deficiency 06/27/2018 Assessment & Plan (07/09/2019 3:35 PM CDT): D cont meds and check on reutrn Assessment & Plan (01/08/2019 5:10 PM BARREL ASSEMBLY INSPECTOR): Take 2000 a day or 7 pills [...] Assessment & Plan (07/09/2019 3:35 PM CDT): long term care phlebotomist talk about quit Assessment & Plan (06/27/2018 2:39 PM CDT): Recognize need to quit.fvc 111 and [id number]% of nl. Gtreat. No obstructive defect Multiple-type [...] limited. Assessment & Plan (11/08/2020 2:40 PM BARREL ASSEMBLY INSPECTOR): ldl dropped o 5mg atarvasitn and stephen [...] good Assessment & Plan (01/08/2019 5:07 PM BARREL ASSEMBLY INSPECTOR): Lipids check oonrfeturn and look for where [...] GHADA Assessment & Plan (01/08/2019 5:09 PM BARREL ASSEMBLY INSPECTOR): Check a1c on return Assessment & Plan [...] on file Legal Sex Male 4:01 PM BARREL ASSEMBLY INSPECTOR Gender Identity Not on file Sexual Orientation [...] Plan of Treatment Not on file Insurance [employer] OPEN ACCESS
--- OUTSIDE RECORDS SUMMARY | 2025-04-21 07:26 | XMS_ITS | Referral Summary ---
Author Organization [facility] Address [address] [place] [address] Care Team Providers Care Dairy Chemist Name Role Phone Unavailable Primary Care Provider [...] 11/08/2020 Assessment & Plan (11/08/2020 2:40 PM SOLAR INSTALLATION SUPERVISOR): Elbows and knees off meds for dec [...] meds Assessment & Plan (11/08/2020 2:41 PM SOLAR INSTALLATION SUPERVISOR): bp a liaattle higher here and little [...] go Assessment & Plan (11/08/2020 2:41 PM SOLAR INSTALLATION SUPERVISOR): Check on return Assessment & Plan (07/12/2020 [...] bp Assessment & Plan (01/08/2019 5:11 PM SOLAR INSTALLATION SUPERVISOR): Check psa BMI 27.0-27.9,adult 06/27/2018 Assessment & Plan (11/08/2020 2:41 PM SOLAR INSTALLATION SUPERVISOR): Gained a few lbs. Assessment & Plan (07/09/2019 3:20 PM CDT): Work to keep wt here or lower Assessment & Plan (01/08/2019 5:09 PM SOLAR INSTALLATION SUPERVISOR): Watch wst Assessment & Plan (06/27/2018 2:01 [...] passed Assessment & Plan (01/08/2019 5:07 PM SOLAR INSTALLATION SUPERVISOR): Check urine on reutnr Assessment & Plan (06/27/2018 2:05 PM CDT): Present and hx stones. Can't prove not something elese then stones. Think on seeing uro to eval for stones or someother source. other worry would be cancer Vitamin deficiency 06/27/2018 Assessment & Plan (07/09/2019 3:35 PM CDT): D cont meds and check on reutrn Assessment & Plan (01/08/2019 5:10 PM SOLAR INSTALLATION SUPERVISOR): Take 2000 a day or 7 pills [...] Assessment & Plan (07/09/2019 3:35 PM CDT): termite exterminator talk about quit Assessment & Plan (06/27/2018 2:39 PM CDT): Recognize need to quit.fvc 111 and [id number]% of nl. Gtreat. No obstructive defect Multiple-type [...] limited. Assessment & Plan (11/08/2020 2:40 PM SOLAR INSTALLATION SUPERVISOR): ldl dropped o 5mg atarvasitn and stephen [...] good Assessment & Plan (01/08/2019 5:07 PM SOLAR INSTALLATION SUPERVISOR): Lipids check oonrfeturn and look for where [...] GHADA Assessment & Plan (01/08/2019 5:09 PM SOLAR INSTALLATION SUPERVISOR): Check a1c on return Assessment & Plan [...] on file Legal Sex Male 4:01 PM SOLAR INSTALLATION SUPERVISOR Gender Identity Not on file Sexual Orientation [...] Plan of Treatment Not on file Insurance [employer] OPEN ACCESS
[2025-04-21 07:36] VITALS: BP 151/97; PULSE 72; RESP 16; TEMP 36.8; O2SAT 97
--- NOTE | 2025-04-21 08:30 | PM.HPGS ---
History of Present Illness History of Present Illness Consent: Risks, benefits, and alternatives have been discussed and questions answered. Patient agrees to proceed with procedure. Chief complaint: Sacroiliitis Narrative: Ricki Begum is a 50 year old male with chronic, recalcitrant and disabling bilateral lumbosacral back pain secondary to sacroiliac joint arthropathy, sacroiliitis with failure to respond to aggressive conservative measures including PT, oral and topical analgesics, opioid and nonopioid analgesics, rest, time and activity/behavioral modification over the past 1-2 years who presents for therapeutic bilateral SI joint steroid injections fluoroscopic guidance and with contrast control. Review of Systems Review of Systems: Patient denies any new infectious, allergic, cardiopulmonary, neurologic or constitutional symptoms or changes in activity tolerance or exercise capacity including new or progressive SOB/BENTON, peripheral edema, productive cough, dysuria, nausea/vomiting, diarrhea, weight change, fevers/chills/night sweats, new or progressive neurologic deficit, cognitive or mood changes since last seen, except as documented in the HPI. All systems reviewed & are unremarkable except as noted in HPI and below PMFSH Family History Family History Father Diabetes mellitus Hypertension Heart disease Mother Diabetes mellitus Hypertension Cerebrovascular accident Sibling Diabetes mellitus Social History Social History Smoking packs per day: 1 Smoking cigarettes per day: 20.0 Smoking status: Current every day smoker Tobacco type: cigarettes Second hand tobacco smoke exposure: Yes Alcohol intake: unknown Substance use: never Substance use type: does not use Lack of Transportation: No Lack of Food: Never True Current Housing: I Have Housing Concerned About Future Housing: No Difficulty Paying Gas/Electric Bills: No Difficulty Paying for Meds: No Currently Unemployed: No Education: Decline to Answer Difficulty w/ Childcare or Family Care: No Living arrangements: with family Spiritual care concerns: No Meds Home Medications and Allergies Home Medications ?Medication ?Instructions ?Recorded ?Confirmed ?Type tadalafil 10 mg tablet (Cialis) 10 mg PO DAILY PRN sexual activity 11/08/22 04/21/25 Rx #20 tabs Allergies Allergy/AdvReac Type Severity Reaction Status Date / Time No Known Allergies Allergy Verified 04/21/25 07:35 Vital Signs Vital Signs - 24 hr 04/21/25 07:36 Temperature 98.2 F Pulse Rate 72 Respiratory Rate 16 Blood Pressure 151/97 H Pulse Oximetry 97 Oxygen Delivery Room Air Exam Narrative: The patient's physical exam is essentially unchanged from prior examination on 01/27/2025. Specifically, patient demonstrates normal lung capacity, tidal volume and respiratory rate without wheezes, crackles, rales or rubs. Heart rate and rhythm are regular without murmurs, gallops or rubs. No JVD. Pulses 2+ globally without increasing peripheral edema. AAOx3 with no evidence of confusion, intoxication or altered mental state, NC/AT without acute distress or altered consciousness. Speech, cognition, mood, insight and judgment at baseline and within normal limits. Assessment and Plan Assessment and plan (1) Dorsalgia: Code(s): M54.9 - Dorsalgia, unspecified Status: Acute (2) Bilateral sacroiliitis: Code(s): M46.1 - Sacroiliitis, not elsewhere classified Status: Acute Assessment and Plan: Proceed as planned with therapeutic bilateral SI joint steroid injections fluoroscopic guidance and with contrast control. (3) Arthropathy of sacroiliac joint: Code(s): M47.818 - Spondylosis without myelopathy or radiculopathy, sacral and sacrococcygeal region Status: Acute
--- NOTE | 2025-04-21 08:33 | P.OP_ITS ---
Procedure Note - Detailed Date of Procedure 04/21/25 Pre-op Diagnosis Sacroiliitis Post-op Diagnosis Same Procedure Performed Bilateral Sacroiliac Joint Steroid Injection under Fluoroscopic Guidance and with Contrast Control. Surgeon Shawn Watkins MD Relief Manager None Anesthesia Local Description of Procedure INFORMED CONSENT: Risks, benefits and alternatives to the procedure were discussed in detail with the patient who expressed explicit understanding and consent to proceed. Patient was informed verbally and in written form regarding the risks associated with the procedure including the low risk of serious infection, bleeding/bruising, allergic reaction, nerve or organ injury, paralysis, procedural site pain or discomfort, worsening pain and/or mobility, failure to treat and/or disfigurement. The patient expressed explicit understanding and consent to proceed. All materials required for the procedure were available prior to procedure start. Site and side were marked prior to procedure and confirmed in the presence of the patient. PROCEDURE IN DETAIL: The patient was brought to the procedural suite and placed in the prone position. Patient was made comfortable with use of pillows under the head/chest, hips and ankles. Skin overlying the injection site on the affected side(s) was prepared broadly with ChloraPrep applicator and draped in a sterile manner. Aseptic technique was used throughout. The right SI joint was identified in the AP view and contralateral oblique angulation with caudal tilt was utilized to optimize visualization of the inferior and medial joint line representing the posterior portion of the joint. Local anesthesia was established by infiltration with approximately 5 mL of 2% lidocaine via a 1-1/2 inch 27-gauge needle. A 22-gauge 3.5 inch Quincke spinal needle was advanced until the needle entered the inferior third of the joint space approximately 1cm cephalad from its most inferior point. In the AP view, 0.5 mL of Omnipaque 300 contrast medium was injected after negative aspiration for CSF, blood or other bodily fluid, showing appropriate intra-articular spread of contrast without evidence of intravascular, perineural or intrathecal placement. A 1.5 mL solution containing 3 mg of betamethasone in 0.5% PF bupivacaine was injected after repeat negative aspiration. Appropriate spread of the injectate was confirmed with washout of previous injected contrast. No parasthesias were elicited. Needle was removed completely intact without difficulty. The same exact procedure was repeated for all remaining levels on the contralateral side, left SI joint, modified as necessary to accommodate for the new target location with identical findings/results and no evidence of complication. Images were saved and documented in the patient chart. Patient's skin was cleansed and sterile bandage applied. The patient tolerated the procedure well. The patient was transported to the recovery area in stable condition where they were observed for an appropriate amount of time prior to discharge, without evidence of complication. The patient was instructed to avoid excessive activity for the next 48 hours, including climbing and frequent use of stairs. Showers only for 48 hours. They were instructed not to drive or operate heavy machinery for 24 hours. They are to monitor for severe headaches, fevers, chills, night sweats, erythema/swelling at the site or any other signs of infection, bleeding/bruising, bowel or bladder changes as well as new pain, weakness or numbness in the upper or lower extremity. Should they notice these changes, they are instructed to call our office immediately or report directly to the nearest Emergency Department if no answer or if after posted office hours. COMPLICATIONS: None COMMENTS: None CONTRAST WASTED: 29mL Omnipaque 300. Complications No immediate complications Condition Stable Disposition Same day [facility] Billing Surgery - Charge Forward: Surgery Billing
--- NOTE | 2025-04-21 08:33 | WPDHPUPDATE1 ---
History and Physical Update Update Date/Time: 04/21/25 08:33 History and Physical has been reviewed, including an updated exam of the patient. There are NO changes in the patient's condition. Risks, benefits, and alternatives have been discussed and questions answered. Patient agrees to proceed with procedure.
[2025-04-21 08:44] VITALS: BP 165/100; PULSE 103; RESP 20; O2SAT 96
[2025-04-21] MEDS: BETAMETHASONE SODIUM PHOSPHATE PF INJ 6 MG/ML VIAL INFILTRATE (08:45)
[2025-04-21 08:48] VITALS: BP 150/78; PULSE 82; RESP 15; O2SAT 96
[2025-04-21] MEDS: LIDOCAINE 1% PF INJ 5 ML VIAL INFILTRATE (08:48)
[2025-04-21] MEDS: BUPivacaine HCL 0.5% 10 ML AMP INFILTRATE (08:49)
[2025-04-21 08:52] VITALS: BP 137/79; PULSE 66; RESP 15; O2SAT 98
== END 2025-04-21 09:05 | disposition home or self-care (01) ==
PROVIDERS: PCP Nurse Practitioner Adult Health; Visit Provider Anesthesiology Pain Medicine
PROC: (CPT 27096; principal; 2025-04-21 08:15)
DX: M46.1 Sacroiliitis, not elsewhere classified (principal)
CPT/HCPCS: 27096; 99199; G0260

== ENCOUNTER 2025-06-18 12:50 | Emergency (ER) | payer OTHER, SELFPAY ==
--- NOTE | ~2025-06-18 | US_ITS ---
Left Upper Extremity Venous Doppler Technique: Real-time sonographic and color Doppler images of the upper extremity veins were performed . Spectral waveform analysis was performed. Findings: The internal jugular and subclavian veins are patent without intraluminal filling defect to suggest t hrombus. There is normal venous outflow. The axillary, brachial, basilic radial, and ulnar veins demo nstrate normal venous flow without occlusion. There is normal compressibility and augmentation. Impression: No evidence of left upper extremity DVT. Reviewed, dictated and finalized at location A. Impression: No evidence of left upper extremity DVT.
--- NOTE | ~2025-06-18 | XR_ITS ---
EXAM/ PROCEDURE: XR elbow LT min 3V - 06/18/2025 15:10 CDT HISTORY: 50 years old Male with left elbow pain, swelling COMPARISON: None available TECHNIQUE: Three view(s) FINDINGS/ IMPRESSION: There are no fractures or dislocations.Joint space narrowing, subchondral sclerosis, subchondral cyst formation and osteophyte formation, compatible with mild osteoarthritis. Small osteophyte overlying the lateral epicondyle. Reviewed, dictated and finalized at location A.
--- OUTSIDE RECORDS SUMMARY | 2025-06-18 12:55 | XMS_ITS | Encounter Summary ---
Author Organization [facility] Healthcare Address [address] [place] [address] Care Team Providers Care Music Professionals Name Role Phone Ambreen Dorsey RETAIL LOSS PREVENTION INVESTIGATOR Primary Care Provider [phone] Reason for Visit * Reason Comments Joint Swelling Pt is here today wit h redness and swelling in his left elbow. Onset is Sunday for the swelling, pain started over a week ago. Encounter Details Date Type Department Care Team (Late st Contact Info) Description 06/18/2025 11:45 AM CDT Office Visit [facility] [place] [address] [place] [address] Maryellen Riley RETAIL LOSS PREVENTION INVESTIGATOR [address] [place], [place] [id number] Elbow swelling, left (Primary Dx) Social History Tobacco Use Types Packs/Day Years Used Date Smoking Tobacco: Every Day Smokeless Tobacco: Never Comments:Smoking History Pac ks/day: 1.5 Packs Alcohol Use Standard Drinks/Week Comments Yes 0 (1 standard drink = 0.6 oz pur e alcohol) PHQ-2 Answer Date Recorded PHQ-2 Total Score (If total score is 3 or more points, staff should administer the PHQ-9) 0 09/30/2021 Sex and Gender Information Value Date Recorded Sex Assigned at Not on file Legal Sex Male 4:01 PM SNAG GRINDER Gender Identity Not on file Sexual Orientation Not on file documented as of this encounter Last Filed Vital Signs Vital Sign Reading Time Taken Comments Blood Pressure 142/94 06/18/2025 11:41 AM CDT Pulse 100 06/18/2025 11:41 AM CDT Temperature 36.8 C (98.2 F) 06/18/2025 11:41 AM CDT Respiratory Rate 18 06/18/2025 11:41 AM CDT Oxygen Saturation 98% 06/18/2025 11:41 AM CDT Inhaled Oxygen Concentration - - Weight 87.5 kg (193 lb) 06/18/2025 11:41 AM CDT Height 167.6 cm (5' 6) 06/18/2025 11:41 AM CDT Body Mass Index 31.15 06/18/2025 11:41 AM CDT documented in this encounter Plan of Treatment Not on file documented as of this encounter Visit Diagnoses Diagnosis Elbow swelling, left- Primary documented in this encounter Care Teams Music Professionals Relationship Specialty Start Date End Date Ambreen Dorsey NP [address] [place] [address] PCP - General Nurse Practitioner 06/18/25 documented as of this encounter
--- OUTSIDE RECORDS SUMMARY | 2025-06-18 12:55 | XMS_ITS | Continuity of Care Document ---
Author Organization [facility] Address [address] [place] [address] Phone Care Team Providers Care Fiberglass Grinder Name Role Phone Dalton Nichols MD Unavailable Unavailable Procedures Procedure Date Eye Exam, New Patient Advance Directives Directive Yes / No Effective Date File Name No Information Encounters Encounter Description Practice Location Reason(s) For Visit Diagnoses Date Provider Providers Copied on Encounter [facility], [address], [place], [place], [id number], [place] tel:[phone] SEC Juan [place] Professional No Information 0 Simone Hoffman. [address] [facility] [address], [place], [place], [address], [place]. tel:[phone] Family History Family Member Type Diagnosis Age At Onset No Information Payers Payer name Insurance type Covered alliance party ID Authoriza tion(s) No Information Social [...]
--- OUTSIDE RECORDS SUMMARY | 2025-06-18 12:55 | XMS_ITS | Clinical Summary ---
Author Organization [facility] Medical Office Building A Address [address] [place] [address] Care Team Providers Care Land Degradation Analyst Name Role Phone Ambreen Dorsey NP Primary Care Provider [phone] Allergies No known active allergies Medications cholecalciferol (VITAMIN D3) 2,000 unit capsule 2,000 Units. 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 Assessment & Plan (11/08/2020 2:40 PM ENVIRONMENTAL MANAGEMENT SPECIALIST): Elbows and knees off meds for dec [...] meds Assessment & Plan (11/08/2020 2:41 PM ENVIRONMENTAL MANAGEMENT SPECIALIST): bp a liaattle higher here and little better at home colton crespo to cross check Assessment & Plan (07/12/2020 [...] go Assessment & Plan (11/08/2020 2:41 PM ENVIRONMENTAL MANAGEMENT SPECIALIST): Check on return Assessment & Plan (07/12/2020 [...] bp Assessment & Plan (01/08/2019 5:11 PM ENVIRONMENTAL MANAGEMENT SPECIALIST): Check psa BMI 27.0-27.9,adult 06/27/2018 Assessment & Plan (11/08/2020 2:41 PM ENVIRONMENTAL MANAGEMENT SPECIALIST): Gained a few lbs. Assessment & Plan (07/09/2019 3:20 PM CDT): Work to keep wt here or lower Assessment & Plan (01/08/2019 5:09 PM ENVIRONMENTAL MANAGEMENT SPECIALIST): Watch wst Assessment & Plan (06/27/2018 2:01 [...] passed Assessment & Plan (01/08/2019 5:07 PM ENVIRONMENTAL MANAGEMENT SPECIALIST): Check urine on reutnr Assessment & Plan (06/27/2018 2:05 PM CDT): Present and hx stones. Can't prove not something elese then stones. Think on seeing uro to eval for stones or someother source. other worry would be cancer Vitamin deficiency 06/27/2018 Assessment & Plan (07/09/2019 3:35 PM CDT): D cont meds and check on reutrn Assessment & Plan (01/08/2019 5:10 PM ENVIRONMENTAL MANAGEMENT SPECIALIST): Take 2000 a day or 7 pills [...] Assessment & Plan (07/09/2019 3:35 PM CDT): detention talk about quit Assessment & Plan (06/27/2018 2:39 PM CDT): Recognize need to quit.fvc 111 and [id number]% of nl. Gtreat. No obstructive defect Multiple-type [...] limited. Assessment & Plan (11/08/2020 2:40 PM ENVIRONMENTAL MANAGEMENT SPECIALIST): ldl dropped o 5mg atarvasitn and stephen [...] good Assessment & Plan (01/08/2019 5:07 PM ENVIRONMENTAL MANAGEMENT SPECIALIST): Lipids check oonrfeturn and look for where [...] GHADA Assessment & Plan (01/08/2019 5:09 PM ENVIRONMENTAL MANAGEMENT SPECIALIST): Check a1c on return Assessment & Plan (06/27/2018 2:00 PM CDT): a1c at 5.3 and well les then 5.6 check on return Encounters Date Type Department Care Team Description 06/18/2025 11:45 AM CDT Office Visit [facility] [place] [address] [place] [address] Maryellen Riley NP Elbow swelling, left (Primary Dx) from Last 3 Months Immunizations Immunization Administration Dates Next Due Influenza, [...] on file Legal Sex Male 4:01 PM ENVIRONMENTAL MANAGEMENT SPECIALIST Gender Identity Not on file Sexual Orientation [...] Mass Index 31.15 06/18/2025 11:41 AM CDT Plan of Treatment Health Maintenance Due Date Last Done Comments Colon Cancer Screening-Colonoscopy 1973 Hepatitis C Screening 1973 Hepatitis B Screening 1991 Pneumococcal vaccine <65 (1 of 2 - PCV) 1992 Depression Screening 09/30/2022 09/30/2021, 03/10/2021, 11/08/2020, Additional history exists Regular Well Visit/Exam 18-64 09/30/2022, 07/12/2020, 07/09/2019, Additional history exists Zoster Vaccine (1 of 2) 2023 Prostate Cancer Screening-PSA 09/24/2023, 07/03/2020, 07/04/2019 DTaP/Tdap/Td Vaccine (2 - Td or Tdap) 06/27/2028 06/27/2018 Influenza Vaccine Discontinued Procedures Procedure Name Priority Date/Time Associated Diagnosis Comments PSA SCREEN Routine 09/24/2021 9:10 AM CDT Preventative health care Screening PSA (prostate specific antigen) from Last 3 Months or Most Recently Relevant to Health Maintenance Results * PSA screen (09/24/2021 9:10 AM CDT) PSA 0.62 < OR = 4.00 ng/mL [facility] Comment: The total PSA value from this assay system is standardized against the WHO standard. The test result will be approximately 20% lower when compared to the equimolar-standardized total PSA (Mau Selene). Comparison of serial PSA results should be interpreted with this fact in mind. This test was performed using the Siemens chemiluminescent method. Values obtained from different assay methods cannot be used interchangeably. PSA levels, regardless of value, should not be interpreted as absolute evidence of the presence or absence of disease. Blood specimen (specimen) 09/24/2021 9:10 AM CDT 09/25/2021 3:51 AM CDT Narrative [facility] - 09/26/2021 2:10 PM CDT FASTING:YES FASTING: YES Jesse Malloy MD LAB BLOOD ORDERABLE S Final Result [facility] [id number] [place] [address] from Last 3 Months or Most Recently Relevant to Health Maintenance Insurance [employer] OPEN ACCESS [employer] OPEN ACCESS Care Teams Land Degradation Analyst Relationship Specialty Start Date End Date Ambreen Doresy NP [address] [place] [id number] PCP - General Nurse Practitioner 06/18/25
--- OUTSIDE RECORDS SUMMARY | 2025-06-18 12:55 | XMS_ITS | Referral Summary ---
Author Organization [facility] Medical Office Building A Address [address] [place] [address] Care Team Providers Care Sponge Clipper Name Role Phone Ambreen Dorsey NP Primary Care Provider [phone] Encounters Date Type Department Care Team Description 06/18/2025 11:45 AM CDT Office Visit [facility] [place] [address] [place] [address] Maryellen Riley NP Elbow swelling, left (Primary Dx) from Last 3 Months Allergies No known active allergies Medications cholecalciferol (VITAMIN D3) 2,000 unit capsule 2,000 Units. 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 Assessment & Plan (11/08/2020 2:40 PM BLOCKER AND POLISHER GOLD WHEEL): Elbows and knees off meds for dec [...] meds Assessment & Plan (11/08/2020 2:41 PM BLOCKER AND POLISHER GOLD WHEEL): bp a liaattle higher here and little better at home bringin motior to cross check Assessment & Plan (07/12/2020 9:05 AM CDT): bp here mildly up aty 113 032 /80-82 with ekg Rate 66 nsr axis 17 without bp efecgts for now wiol not start meds and ask to [facility] quarterly or so for cuide monitoring IGT (impaired glucose tolerance) 07/09/2019 Assessment & Plan (03/10/2021 4:43 PM CDT): a1c at 5 2 and go Assessment & Plan (11/08/2020 2:41 PM BLOCKER AND POLISHER GOLD WHEEL): Check on return Assessment & Plan (07/12/2020 [...] bp Assessment & Plan (01/08/2019 5:11 PM BLOCKER AND POLISHER GOLD WHEEL): Check psa BMI 27.0-27.9,adult 06/27/2018 Assessment & Plan (11/08/2020 2:41 PM BLOCKER AND POLISHER GOLD WHEEL): Gained a few lbs. Assessment & Plan (07/09/2019 3:20 PM CDT): Work to keep wt here or lower Assessment & Plan (01/08/2019 5:09 PM BLOCKER AND POLISHER GOLD WHEEL): Watch wst Assessment & Plan (06/27/2018 2:01 [...] passed Assessment & Plan (01/08/2019 5:07 PM BLOCKER AND POLISHER GOLD WHEEL): Check urine on reutnr Assessment & Plan (06/27/2018 2:05 PM CDT): Present and hx stones. Can't prove not something elese then stones. Think on seeing uro to eval for stones or someother source. 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 Gtreat. No obstructive defect Multiple-type [...] limited. Assessment & Plan (11/08/2020 2:40 PM BLOCKER AND POLISHER GOLD WHEEL): ldl dropped o 5mg atarvasitn and stephen [...] good Assessment & Plan (01/08/2019 5:07 PM BLOCKER AND POLISHER GOLD WHEEL): Lipids check oonrfeturn and look for where [...] GHADA Assessment & Plan (01/08/2019 5:09 PM BLOCKER AND POLISHER GOLD WHEEL): Check a1c on return Assessment & Plan [...] on file Legal Sex Male 4:01 PM BLOCKER AND POLISHER GOLD WHEEL Gender Identity Not on file Sexual Orientation [...] 06/18/2025 11:41 AM CDT Plan of Treatment Not on file Procedures Procedure Name Priority Date/Time Associated Diagnosis Comments PSA SCREEN Routine 09/24/2021 9:10 AM CDT Preventative health care Screening PSA (prostate specific antigen) from Last 3 Months or Most Recently Relevant to Health Maintenance Results * PSA screen (09/24/2021 9:10 AM CDT) PSA 0.62 < OR = 4.00 ng/mL [facility] Comment: The total PSA value [...] 9:10 AM CDT 09/25/2021 3:51 AM CDT [facility] - 09/26/2021 2:10 PM CDT FASTING:YES FASTING: YES Jesse Malloy MD LAB BLOOD ORDERABLE S Final Result [facility] [address] [facility] [place] [address] from Last 3 Months or Most Recently Relevant to Health Maintenance Insurance [employer] OPEN ACCESS [employer] OPEN ACCESS Care Teams Sponge Clipper Relationship Specialty Start Date End Date Ambreen Dorsey NP [address] [place] [id number] PCP - General Nurse Practitioner 06/18/25
[2025-06-18 12:59] VITALS: BP 164/102; PULSE 103; RESP 18; TEMP 37.2; O2SAT 97
--- NOTE | 2025-06-18 14:34 | ED_ITS ---
HPI - Extremity Injury (Upper) General Chief Complaint: Extremity Injury, Upper <Jo Ann Gray PA-C - Last Filed: 06/18/25 18:53> Stated Complaint: Swollen/red/hot left elbow -no known injury <Jo Ann Gray PA-C - Last Filed: 06/18/25 18:53> Time Seen by Provider: 06/18/25 14:34 <Jo Ann Gray PA-C - Last Filed: 06/18/25 18:53> Focused HPI: This is a 50 year old male that presents to the ER for left elbow pain, redness, swelling. Ongoing over the last 4 days. Reports he had a burn to the area 2 weeks ago which seemed to have healed well. The swelling and redness have appeared over the last couple of days. No other recent injuries. Denies fevers. GENERAL: Well-appearing, well-nourished, and in no acute distress. HEAD: Normocephalic, atraumatic. CHEST: Clear to auscultation. ?No respiratory distress. HEART: Regular rate and rhythm.? NEURO: ?Alert and oriented x3. Patient screened in triage and initial orders placed.? ?Additional care and disposition to be based upon?diagnostic testing and treatment. <Jo Ann Gray PA-C - Last Filed: 06/18/25 18:53> History of Present Illness HPI narrative: see mse <Samra Dominguez III, DO - Last Filed: 06/18/25 18:27> Related Data Allergies/Adverse Reactions: Allergies Allergy/AdvReac Type Severity Reaction Status Date / Time No Known Allergies Allergy Verified 06/18/25 12:51 <Jo Ann Gray PA-C - Last Filed: 06/18/25 18:53> Review of Systems 2 Review of Systems: All systems reviewed & are unremarkable except as noted in HPI and below <Samra Dominguez III, DO - Last Filed: 06/18/25 18:27> PMFSH Family History Family History: Family History Father Diabetes mellitus Hypertension Heart disease Mother Diabetes mellitus Hypertension Cerebrovascular accident Sibling Diabetes mellitus <Jo Ann Gray PA-C - Last Filed: 06/18/25 18:53> Social History Social History: Social History Smoking packs per day: 1 Smoking cigarettes per day: 20.0 Smoking status: Current every day smoker Tobacco type: cigarettes Second hand tobacco smoke exposure: Yes Alcohol intake: unknown Substance use: never Substance use type: does not use Lack of Transportation: No Lack of Food: Never True Current Housing: I Have Housing Concerned About Future Housing: No Difficulty Paying Gas/Electric Bills: No Difficulty Paying for Meds: No Currently Unemployed: No Education: Decline to Answer Difficulty w/ Childcare or Family Care: No Living arrangements: with family Spiritual care concerns: No <MILO OrtizC - Last Filed: 06/18/25 18:53> Exam 2 Const: General: healthy appearing and no acute distress <Samra Stevenson Dominguez III, DO - Last Filed: 06/18/25 18:27> Nutritional Appearance: well nourished <Samra Stevenson Dominguez III, DO - Last Filed: 06/18/25 18:27> Orientation/consciousness: patient oriented x3 <Samra Stevenson Dominguez III, DO - Last Filed: 06/18/25 18:27> Limitations: no limitations <Samra Stevenson Dominguez III, DO - Last Filed: 06/18/25 18:27> Resp: Effort & Inspection: normal respiratory effort <Samra Stevenson Dominguez III, DO - Last Filed: 06/18/25 18:27> Auscultation: clear to auscultation bilaterally <Samra Stevenson Dominguez III, DO - Last Filed: 06/18/25 18:27> Cardio: Rate: regular rate <Samra Stevenson Dominguez III, DO - Last Filed: 06/18/25 18:27> Rhythm: regular rhythm <Samra Stevenson Dominguez III, DO - Last Filed: 06/18/25 18:27> GI: GI Palp: Yes Soft to palpation and No Tenderness to palpation present (GI) <Samra Stevenson Dominguez III, DO - Last Filed: 06/18/25 18:27> Auscultation: normal bowel sounds <Samra Stevenson Dominguez III, DO - Last Filed: 06/18/25 18:27> Skin: Other: erythema and seling over olecrenon left elbow. <Samra Stevenson Dominguez III, DO - Last Filed: 06/18/25 18:27> Neuro: General: patient oriented x3, moves all extremities, no meningeal signs and no focal motor deficits <Samra Stevenson Dominguez III, DO - Last Filed: 06/18/25 18:27> Cranial nerves: Yes Nystagmus not present <Samra Stevenson Dominguez III, DO - Last Filed: 06/18/25 18:27> Extrem: Other: swelling and erythema over olecrenon bursa, no abscess, warmth to area and up into posterior upper arm. <Samra Stevenson Dominguez III, DO - Last Filed: 06/18/25 18:27> Psych: Mental Status: mental status grossly normal <Samra Stevenson Dominguez III, DO - Last Filed: 06/18/25 18:27> Affect: normal affect <Samra Stevenson Dominguez III, DO - Last Filed: 06/18/25 18:27> Attitude: cooperative <Samra Stevenson Dominguez III, DO - Last Filed: 06/18/25 18:27> Course Vital Signs Vital signs: Vital Signs Temperature 98.9 F 06/18/25 12:59 Pulse Rate 103 H 06/18/25 12:59 Respiratory Rate 18 06/18/25 12:59 Blood Pressure 164/102 H 06/18/25 12:59 Pulse Oximetry 97 06/18/25 12:59 Oxygen Delivery Room Air 06/18/25 12:59 Temperature 98.9 F 06/18/25 12:59 Pulse Rate 103 H 06/18/25 12:59 Respiratory Rate 18 06/18/25 12:59 Blood Pressure 164/102 H 06/18/25 12:59 Pulse Oximetry 97 06/18/25 12:59 Oxygen Delivery Room Air 06/18/25 12:59 <Jo Ann Gray PA-C - Last Filed: 06/18/25 18:53> Vital Signs Temperature 98.9 F 06/18/25 12:59 Pulse Rate 103 H 06/18/25 12:59 Respiratory Rate 18 06/18/25 12:59 Blood Pressure 164/102 H 06/18/25 12:59 Pulse Oximetry 97 06/18/25 12:59 Oxygen Delivery Room Air 06/18/25 12:59 Temperature 98.9 F 06/18/25 12:59 Pulse Rate 103 H 06/18/25 12:59 Respiratory Rate 18 06/18/25 12:59 Blood Pressure 164/102 H 06/18/25 12:59 Pulse Oximetry 97 06/18/25 12:59 Oxygen Delivery Room Air 06/18/25 12:59 <Samra Dominguez III, DO - Last Filed: 06/18/25 18:27> MDM - Extremity Injury (Upper) MDM Narrative Medical decision making narrative: Pt had burn a couple of weeks ago on right elbow that healed. Pt developed pain and swelling to elbow over last four dayd. Pt denies fever or chills. x ray no fx some arthritis, doppler neg. cbc and cmp and cultures ordered will gie pt shot af ancef. appears as cellulitis but could be bursitis. wbc 16k, cmp ok. will start on clidamycin and naprosyn and have follow up with ortho. Pt has PCP appointment 06/29 as well/ told to return if redness worsens or fever or chills <Samra Dominguez III, DO - Last Filed: 06/18/25 18:27> Lab Data Result diagrams: 06/18/25 16:50 06/18/25 16:50 <Jo Ann Gray PA-C - Last Filed: 06/18/25 18:53> Labs: Lab Results 06/18/25 Range/Units 16:50 WBC 16.6 H (4.5-10.0) K/mm3 RBC 4.61 (4.6-6.20) M/mm3 Hgb 14.9 (14.0-18.0) g/dL Hct 44.0 (42.0-52.0) % MCV 95.4 (80-100) fl MCH 32.3 (26-34) pg MCHC 33.9 (32-36) g/dl RDW 12.2 (11.5-14.5) % Plt Count 209 (150-375) k/mm3 MPV 10.4 (7.4-10.4) fl Immature Gran % (Auto) 0.4 (0-0.5) % Neut % (Auto) 75.5 H (45.5-73.1) % Lymph % (Auto) 17.0 L (18.3-44.2) % Burt % (Auto) 6.3 (2.6-8.5) % Eos % (Auto) 0.5 (0-4.4) % Baso % (Auto) 0.3 (0.2-1.2) % Lymph # (Auto) 2.82 (0.9-3.2) K/mm3 Burt # (Auto) 1.0 H (0.1-0.6) K/mm3 Eos # (Auto) 0.1 (0-0.3) K/mm3 Baso # (Auto) 0.1 (0.0-0.1) K/mm3 Abs Immat Gran (auto) 0.07 H (0.00-0.031) K/mm3 Absolute Neuts (auto) 12.5 H (1.3-6.7) K/mm3 Absolute Nucleated RBC 0.000 (0.0-0.012) K/mm3 Nucleated RBC % 0.0 (0.0-0.2) % ESR 16 (0-20) mm/hr PT 14.1 (11.1-14.7) Seconds INR 1.1 APTT 25.4 (22.3-36.8) Seconds Sodium 135 L (137-145) mmol/L Potassium 4.0 (3.4-5.0) mmol/L Chloride 106 (98-107) mmol/L Carbon Dioxide 23 (22-30) mmol/L Anion Gap 6 (4-12) mmol/L BUN 14 (9-20) mg/dL Creatinine 0.88 (0.7-1.3) mg/dL Estim Creat Clear Calc 87 ml/min Estimated GFR > 60 (59 - ) Glucose 100 (65-110) mg/dL Uric Acid 5.2 (3.5-8.5) mg/dL Calcium 8.8 (8.4-10.2) mg/dL Total Bilirubin 0.9 (0.2-1.3) mg/dL AST 23 (17-59) U/L ALT 19 (6-50) U/L Alkaline Phosphatase 100 (38-126) U/L C-Reactive Protein 3.9 H (<1.0) mg/dL Total Protein 6.7 (6.3-8.2) g/dL Albumin 3.9 (3.5-5.1) g/dL <Jo Ann Gray PA-C - Last Filed: 06/18/25 18:53> Lab Results 06/18/25 Range/Units 16:50 WBC 16.6 H (4.5-10.0) K/mm3 RBC 4.61 (4.6-6.20) M/mm3 Hgb 14.9 (14.0-18.0) g/dL Hct 44.0 (42.0-52.0) % MCV 95.4 (80-100) fl MCH 32.3 (26-34) pg MCHC 33.9 (32-36) g/dl RDW 12.2 (11.5-14.5) % Plt Count 209 (150-375) k/mm3 MPV 10.4 (7.4-10.4) fl Immature Gran % (Auto) 0.4 (0-0.5) % Neut % (Auto) 75.5 H (45.5-73.1) % Lymph % (Auto) 17.0 L (18.3-44.2) % Burt % (Auto) 6.3 (2.6-8.5) % Eos % (Auto) 0.5 (0-4.4) % Baso % (Auto) 0.3 (0.2-1.2) % Lymph # (Auto) 2.82 (0.9-3.2) K/mm3 Burt # (Auto) 1.0 H (0.1-0.6) K/mm3 Eos # (Auto) 0.1 (0-0.3) K/mm3 Baso # (Auto) 0.1 (0.0-0.1) K/mm3 Abs Immat Gran (auto) 0.07 H (0.00-0.031) K/mm3 Absolute Neuts (auto) 12.5 H (1.3-6.7) K/mm3 Absolute Nucleated RBC 0.000 (0.0-0.012) K/mm3 Nucleated RBC % 0.0 (0.0-0.2) % ESR 16 (0-20) mm/hr PT 14.1 (11.1-14.7) Seconds INR 1.1 APTT 25.4 (22.3-36.8) Seconds Sodium 135 L (137-145) mmol/L Potassium 4.0 (3.4-5.0) mmol/L Chloride 106 (98-107) mmol/L Carbon Dioxide 23 (22-30) mmol/L Anion Gap 6 (4-12) mmol/L BUN 14 (9-20) mg/dL Creatinine 0.88 (0.7-1.3) mg/dL Estim Creat Clear Calc 87 ml/min Estimated GFR > 60 (59 - ) Glucose 100 (65-110) mg/dL Uric Acid 5.2 (3.5-8.5) mg/dL Calcium 8.8 (8.4-10.2) mg/dL Total Bilirubin 0.9 (0.2-1.3) mg/dL AST 23 (17-59) U/L ALT 19 (6-50) U/L Alkaline Phosphatase 100 (38-126) U/L C-Reactive Protein 3.9 H (<1.0) mg/dL Total Protein 6.7 (6.3-8.2) g/dL Albumin 3.9 (3.5-5.1) g/dL <Samra Dominguez III, DO - Last Filed: 06/18/25 18:27> Discharge Plan Discharge Clinical Impression: Cellulitis Qualifiers: Site of cellulitis: extremity Site of cellulitis of extremity: upper extremity Laterality: left Qualified Code(s): L03.114 - Cellulitis of left upper limb Bursitis Qualifiers: Bursitis location: elbow Elbow bursitis location: olecranon bursitis L aterality: left Qualified Code(s): M70.22 - Olecranon bursitis, left elbow <AIDEN Ortiz Last Filed: 06/18/25 18:53> Patient Disposition: Home <AIDEN Ortiz Last Filed: 06/18/25 18:53> Condition: Stable <AIDEN Ortiz Last Filed: 06/18/25 18:53> Instructions: Antibiotic Form, Cellulitis (ED), Elbow Bursitis (ED) <AIDEN Ortiz Last Filed: 06/18/25 18:53> Patient Language: Yi <AIDEN Ortiz Last Filed: 06/18/25 18:53> Prescriptions: New naproxen [Naprosyn] 500 mg tablet 500 mg PO BID Qty: 20 0RF clindamycin HCl [Cleocin HCl] 300 mg capsule 300 mg PO Q6H Qty: 40 0RF No Action tadalafil [Cialis] 10 mg tablet 10 mg PO DAILY PRN (Reason: sexual activity) Qty: 20 0RF Rx Instructions: administer approximately 30min before sexual activity; do not use more than 1 dose per 24hrs <Jo Ann Gray PA-C - Last Filed: 06/18/25 18:53> Follow-up/Referrals: Ambreen Dorsey APRN [Primary Care Provider] - <Jo Ann Gray PA-C - Last Filed: 06/18/25 18:53>
--- OUTSIDE RECORDS SUMMARY | 2025-06-18 16:33 | XMS_ITS | Referral Summary ---
Author Organization [facility] Medical Office Building A Address [address] [place] [address] Care Team Providers Care Distribution Systems Superintendent Name Role Phone Ambreen Dorsey NP Primary Care Provider [phone] Encounters Date Type Department Care Team Description 06/18/2025 11:45 AM CDT Office Visit [facility] [place] [address] [place] [address] Maryellen Riley NP Elbow swelling, [...] 11/08/2020 Assessment & Plan (11/08/2020 2:40 PM DIRECTOR OF BUSINESS APPLICATIONS): Elbows and knees off meds for dec [...] meds Assessment & Plan (11/08/2020 2:41 PM DIRECTOR OF BUSINESS APPLICATIONS): bp a liaattle higher here and little better at home bringin motior to cross check Assessment & Plan (07/12/2020 9:05 AM CDT): bp here mildly up aty 113 032 /80-82 with ekg Rate 66 nsr axis 17 without bp efecgts for now wiol not start meds and ask to [facility] quarterly or so for cuide monitoring IGT (impaired glucose tolerance) 07/09/2019 Assessment & Plan (03/10/2021 4:43 PM CDT): a1c at 5 2 and go Assessment & Plan (11/08/2020 2:41 PM DIRECTOR OF BUSINESS APPLICATIONS): Check on return Assessment & Plan (07/12/2020 [...] bp Assessment & Plan (01/08/2019 5:11 PM DIRECTOR OF BUSINESS APPLICATIONS): Check psa BMI 27.0-27.9,adult 06/27/2018 Assessment & Plan (11/08/2020 2:41 PM DIRECTOR OF BUSINESS APPLICATIONS): Gained a few lbs. Assessment & Plan (07/09/2019 3:20 PM CDT): Work to keep wt here or lower Assessment & Plan (01/08/2019 5:09 PM DIRECTOR OF BUSINESS APPLICATIONS): Watch wst Assessment & Plan (06/27/2018 2:01 [...] passed Assessment & Plan (01/08/2019 5:07 PM DIRECTOR OF BUSINESS APPLICATIONS): Check urine on reutnr Assessment & Plan (06/27/2018 2:05 PM CDT): Present and hx stones. Can't prove not something elese then stones. Think on seeing uro to eval for stones or someother source. 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 Gtreat. No obstructive defect Multiple-type [...] limited. Assessment & Plan (11/08/2020 2:40 PM DIRECTOR OF BUSINESS APPLICATIONS): ldl dropped o 5mg atarvasitn and stephen [...] good Assessment & Plan (01/08/2019 5:07 PM DIRECTOR OF BUSINESS APPLICATIONS): Lipids check oonrfeturn and look for where [...] GHADA Assessment & Plan (01/08/2019 5:09 PM DIRECTOR OF BUSINESS APPLICATIONS): Check a1c on return Assessment & Plan [...] on file Legal Sex Male 4:01 PM DIRECTOR OF BUSINESS APPLICATIONS Gender Identity Not on file Sexual Orientation [...] 9:10 AM CDT 09/25/2021 3:51 AM CDT [facility] - 09/26/2021 2:10 PM CDT FASTING:YES FASTING: YES Jesse Malloy MD LAB BLOOD ORDERABLE S Final Result [facility] [address] [place] [address] from Last 3 Months or Most Recently Relevant to Health Maintenance Insurance [employer] OPEN ACCESS [employer] OPEN ACCESS Care Teams Distribution Systems Superintendent Relationship Specialty Start Date End Date Ambreen Dorsey NP [address] [place] [id number] PCP - General Nurse Practitioner 06/18/25
--- OUTSIDE RECORDS SUMMARY | 2025-06-18 16:33 | XMS_ITS | Clinical Summary ---
Author Organization [facility] Building A Address [address] [place] [address] Care Team Providers Care Painter Tumbling Barrel Name Role Phone Ambreen Dorsey NP Primary Care Provider [phone] Allergies No known active allergies Medications cholecalciferol [...] 11/08/2020 Assessment & Plan (11/08/2020 2:40 PM UTILITY OPERATOR YARN): Elbows and knees off meds for dec [...] meds Assessment & Plan (11/08/2020 2:41 PM UTILITY OPERATOR YARN): bp a liaattle higher here and little [...] go Assessment & Plan (11/08/2020 2:41 PM UTILITY OPERATOR YARN): Check on return Assessment & Plan (07/12/2020 [...] bp Assessment & Plan (01/08/2019 5:11 PM UTILITY OPERATOR YARN): Check psa BMI 27.0-27.9,adult 06/27/2018 Assessment & Plan (11/08/2020 2:41 PM UTILITY OPERATOR YARN): Gained a few lbs. Assessment & Plan (07/09/2019 3:20 PM CDT): Work to keep wt here or lower Assessment & Plan (01/08/2019 5:09 PM UTILITY OPERATOR YARN): Watch wst Assessment & Plan (06/27/2018 2:01 [...] passed Assessment & Plan (01/08/2019 5:07 PM UTILITY OPERATOR YARN): Check urine on reutnr Assessment & Plan (06/27/2018 2:05 PM CDT): Present and hx stones. Can't prove not something elese then stones. Think on seeing uro to eval for stones or someother source. other worry would be cancer Vitamin deficiency 06/27/2018 Assessment & Plan (07/09/2019 3:35 PM CDT): D cont meds and check on reutrn Assessment & Plan (01/08/2019 5:10 PM UTILITY OPERATOR YARN): Take 2000 a day or 7 pills [...] Assessment & Plan (07/09/2019 3:35 PM CDT): long-term talk about quit Assessment & Plan (06/27/2018 2:39 PM CDT): Recognize need to quit.fvc 111 and [id number]% of nl. Gtreat. No obstructive defect Multiple-type [...] limited. Assessment & Plan (11/08/2020 2:40 PM UTILITY OPERATOR YARN): ldl dropped o 5mg atarvasitn and stephen [...] good Assessment & Plan (01/08/2019 5:07 PM UTILITY OPERATOR YARN): Lipids check oonrfeturn and look for where [...] GHADA Assessment & Plan (01/08/2019 5:09 PM UTILITY OPERATOR YARN): Check a1c on return Assessment & Plan (06/27/2018 2:00 PM CDT): a1c at 5.3 and well les then 5.6 check on return Encounters Date Type Department Care Team Description 06/18/2025 11:45 AM CDT Office Visit [facility] [place] [address] [place] [address] Maryellen Riley NP Elbow swelling, [...] on file Legal Sex Male 4:01 PM UTILITY OPERATOR YARN Gender Identity Not on file Sexual Orientation [...] PSA 0.62 < OR = 4.00 ng/mL [facility] Comment: The total PSA value [...] LAB BLOOD ORDERABLE S Final Result [facility] [address] [place] [address] from Last 3 Months or Most Recently Relevant to Health Maintenance Insurance [employer] OPEN ACCESS [employer] OPEN ACCESS Care Teams Painter Tumbling Barrel Relationship Specialty Start Date End Date Ambreen Dorsey NP [address] [place] [id number] PCP - General Nurse Practitioner 06/18/25
--- OUTSIDE RECORDS SUMMARY | 2025-06-18 16:33 | XMS_ITS | Encounter Summary ---
Author Organization [facility] Healthcare Address [address] [place] [address] Care Team Providers Care Fisher Trawl Net Name Role Phone Ambreen Dorsey MAP[employer] PRODUCTS SUPERVISOR Primary Care Provider [phone] Reason for Visit * Reason Comments Joint Swelling Pt is here today wit h redness and swelling in his left elbow. Onset is Sunday for the swelling, pain started over a week ago. Encounter Details Date Type Department Care Team (Late st Contact Info) Description 06/18/2025 11:45 AM CDT Office Visit [facility] [place] [address] [place] [address] Maryellen Riley [employer]ODU[employer] SUPERVISOR [address] [place] [id number] Elbow swelling, left (Primary Dx) Social History [...] on file Legal Sex Male 4:01 PM TOP WADDY Gender Identity Not on file Sexual Orientation [...] Primary documented in this encounter Care Teams Fisher Trawl Net Relationship Specialty Start Date End Date Ambreen Dorsey NP [address] [place] [address] PCP - General Nurse Practitioner 06/18/25 documented as of this encounter
--- OUTSIDE RECORDS SUMMARY | 2025-06-18 16:33 | XMS_ITS | Continuity of Care Document ---
Author Organization [facility] Address [address] [place] [address] Phone Care Team Providers Care Automotive Metalsmith Name Role Phone Dalton Nichols MD Unavailable Unavailable Procedures Procedure Date Eye Exam, New Patient Advance Directives Directive Yes / No Effective Date File Name No Information Encounters Encounter Description Practice Location Reason(s) For Visit Diagnoses Date Provider Providers Copied on Encounter [facility], [address], [place], [place], [id number], [place] tel:[phone] [address] Juan [place] Professional No Information 0 Simone Hoffman. [address] [facility] [address], [place], [place], [id number], [place]. tel:[phone] Family History Family Member Type Diagnosis Age At Onset No Information Payers Payer name Insurance type Covered democrat ID Authoriza tion(s) No Information Social History [...]
[2025-06-18 16:56] LABS: Hematocrit 44.0 % (42.0-52.0); Hemoglobin 14.9 g/dL (14.0-18.0); Immature Granulocyte Percent A 0.4 % (0-0.5); Lymphocytes Absolute Auto 2.82 K/mm3 (0.9-3.2); Mean Corpuscular HGB Conc 33.9 g/dl (32-36); Mean Corpuscular Hemoglobin 32.3 pg (26-34); Mean Corpuscular Volume 95.4 fl (80-100); Nucleated Red Blood Cells Absolute Auto 0.000 K/mm3 (0.0-0.012); Nucleated Red Blood Cells Perc 0.0 % (0.0-0.2); Platelet Count Result 209 k/mm3 (150-375); Red Blood Count 4.61 M/mm3 (4.6-6.20); White Blood Count 16.6 K/mm3 (4.5-10.0)
[2025-06-18 17:09] LABS: Alanine Aminotransferase 19 U/L (6-50); Albumin Level 3.9 g/dL (3.5-5.1); Alkaline Phosphatase 100 U/L (38-126); Anion Gap 6 mmol/L (4-12); Aspartate Amino Transferase 23 U/L (17-59); Bilirubin,Total 0.9 mg/dL (0.2-1.3); Blood Urea Nitrogen 14 mg/dL (9-20); CRP 3.9 mg/dL (<1.0); Calcium 8.8 mg/dL (8.4-10.2); Carbon Dioxide 23 mmol/L (22-30); Chloride 106 mmol/L (98-107); Estimated CRCL calculation 87 ml/min; Estimated Glomerular Filt Rate > 60; Glucose 100 mg/dL (65-110); Potassium 4.0 mmol/L (3.4-5.0); Sodium 135 mmol/L (137-145); Total Protein 6.7 g/dL (6.3-8.2); Uric Acid 5.2 mg/dL (3.5-8.5)
[2025-06-18 17:34] LABS: INR 1.1; Prothrombin Time 14.1 Seconds (11.1-14.7)
[2025-06-18 17:35] LABS: Partial Thromboplastin Time 25.4 Seconds (22.3-36.8)
== END 2025-06-18 17:30 | disposition home or self-care (01) ==
PROVIDERS: Physician Assistant; Emergency Provider Emergency Medicine; PCP Nurse Practitioner Adult Health
DX: L03.114 Cellulitis of left upper limb (principal); M70.22 Olecranon bursitis, left elbow; F17.210 Nicotine dependence, cigarettes, uncomplicated
CPT/HCPCS: 36415; 73080; 80053; 84550; 85025; 85610; 85652; 85730; 86140; 93971; 96372; 99284; J0690